=== PATIENT | female | born 1950 | race African-American/Black ===

== ENCOUNTER 2023-07-18 14:37 | Emergency (ER) | payer MEDICARE, OTHER ==
[~2023-07-18] VITALS: Ht 157.5 cm; Wt 71.8 kg
[~2023-07-18 14:37] MED LIST: ATOR20TA PO; BUME2TAB34 PO; CHOL200018 PO; DICL100G60 TP; LIRA0.6P SQ; OXYC-490 PO; VALS160T2 PO
[2023-07-18 14:40] VITALS: TEMP 98.6
[2023-07-18] MEDS ORDERED: LEVO75 PO (14:41)
[2023-07-18] MEDS ORDERED: CHOL25TA4 PO (15:26)
[2023-07-18] MEDS ORDERED: GABA-1181 PO (15:26)
[2023-07-18] MEDS ORDERED: OMEP20CA12 PO (15:26)
[2023-07-18] MEDS ORDERED: FLUT16H NASAL (15:26)
[2023-07-18] MEDS ORDERED: SUCR500T PO (15:26)
[2023-07-18] MEDS ORDERED: PHEN37.596 PO (15:26)
[2023-07-18] MEDS ORDERED: CELE50CA9 PO (15:26)
[2023-07-18] MEDS ORDERED: LIDO5CRE TP (15:26)
[2023-07-18] MEDS ORDERED: NALO25TA4 PO (15:26)
[2023-07-18] MEDS ORDERED: TraMADol HCL 50 MG TABLET PO ONE (15:30)
[2023-07-18 16:40] VITALS: BP 101/52; PULSE 80; RESP 18
[2023-07-18] MEDS ORDERED: TRAM-559 PO (18:08)
[2023-07-18] MEDS ORDERED: LIDO700A15 TP (18:09)
== END 2023-07-18 18:27 | disposition home or self-care (01) ==
LOC: EMS 14:44
DX: S46.002A Unspecified injury of muscle(s) and tendon(s) of the rotator cuff of left shoulder, initial encounter (principal); E11.9 Type 2 diabetes mellitus without complications; E78.00 Pure hypercholesterolemia, unspecified; I10 Essential (primary) hypertension; Z90.49 Acquired absence of other specified parts of digestive tract; Z91.040 Latex allergy status; Z88.5 Allergy status to narcotic agent; Z91.018 Allergy to other foods; X58.XXXA Exposure to other specified factors, initial encounter; Y93.89 Activity, other specified; Y92.89 Other specified places as the place of occurrence of the external cause; Y99.8 Other external cause status
CPT/HCPCS: 99283